=== PATIENT | female | born 1945 | race African-American/Black ===

== ENCOUNTER 2022-07-06 09:26 | Inpatient (IN) | payer MEDICARE ==
[2022-07-06] VITALS (7 sets, daily range): BP systolic 105–150; BP diastolic 31–82
[~2022-07-06] VITALS: Ht 160 cm; Wt 67.6 kg
[2022-07-06] MEDS ORDERED: METHYLPREDNISOLONE SOD SUCC 125 MG/2 ML VIAL IV STA (09:36)
[2022-07-06] MEDS ORDERED: IPRATROPIUM BROMIDE (0.02%) 0.5MG/2.5ML NEB HHN STA (09:36)
[2022-07-06] MEDS ORDERED: ALBUTEROL (0.083%) 2.5MG/3ML NEB HHN STA (09:36)
[2022-07-06] MEDS ORDERED: MAGNESIUM 2 G PREMIX 50 ML IV STA (09:36)
[2022-07-06 09:55] LABS: HEMATOCRIT. 31.5 % (36.0-48.0); HEMOGLOBIN. 10.5 g/dL (12.0-16.0); MEAN CORPUSCULAR HEMOGLOBIN 31.2 pg (28.0-32.0); MEAN CORPUSCULAR VOLUME 93.8 fL (81.0-99.0); MEAN PLATELET VOLUME 8.9 fl (7.4-10.4); PLATELET 439 x1000/uL (130-400); RED BLOOD CELL COUNT 3.36 mill/uL (4.2-5.4); RED CELL DISTRIBUTION WIDTH 17.1 % (11.6-14.6)
[2022-07-06 10:01] LABS: CHLORIDE 94 mEq/L (98-107)
[2022-07-06 10:35] LABS: BG BASE EXCESS -3.1 mmol/L (-2.0-2.0); BG CARBOXYHEMOGLOBIN 0.3 % (0.5-1.5); BG DEOXYHEMOGLOBIN 2.9 % (0.0-5.0); BG FRACTION INSPIRED OXYGEN 50; BG HCO3 ACT 22.2 mmol/L (22.0-26.0); BG METHEMOGLOBIN 0.3 % (0.0-1.5); BG OXYGEN SATURATION 97.1 % (92.0-98.5); BG OXYHEMOGLOBIN 96.5 % (94.0-97.0); BG PCO2 41.1 mmHg (35.0-45.0); BG PH 7.351 (7.350-7.450); BG PO2 102.6 mmHg (75.0-100.0); BG SAMPLE SITE RIGHT BRACHIAL; BG TOTAL HEMOGLOBIN 10.8 g/dL (12.0-18.0); BG VENT MODE MASK - HHN
[2022-07-06 10:36] LABS: PLATELET ESTIMATE SLIGHTLY INCREASED
[2022-07-06] MEDS ORDERED: CEFTRIAXONE 1 G PREMIX 50 ML IV SCH (16:15)
[2022-07-06] MEDS ORDERED: ONDANSETRON HCL 4MG/2ML INJ IV PRN (16:15)
[2022-07-06] MEDS ORDERED: ACETAMINOPHEN 325MG TABLET PO PRN (16:15)
[2022-07-06] MEDS: SODIUM CHLORIDE 0.9% 1,000 ML IV SCH (17:00)
[2022-07-06] MEDS: CEFTRIAXONE 1,000 MG in DEXTROSE 5% WATER 50 ML IV SCH (17:30)
[2022-07-06 18:13] LABS: D-DIMER 3.68 mg/L FEU (<0.50); PROTHROMBIN TIME 10.5 sec (9.6-11.0)
[2022-07-06] MEDS: AZITHROMYCIN 500 MG in DEXT 5% WATER 250 ML IV SCH (18:55)
[2022-07-06] MEDS: IPRATROPIUM/ALBUTEROL 0.5-3(2.5)MG/3ML NEB HHN SCH (21:10)
[2022-07-07] VITALS (30 sets, daily range): BP systolic 91–149; BP diastolic 44–78
[2022-07-07] MEDS: IPRATROPIUM/ALBUTEROL 0.5-3(2.5)MG/3ML NEB HHN SCH ×4 (01:33→20:14)
[2022-07-07 08:21] LABS: BG BASE EXCESS -6.3 mmol/L (-2.0-2.0); BG CARBOXYHEMOGLOBIN 0.3 % (0.5-1.5); BG DEOXYHEMOGLOBIN 6.2 % (0.0-5.0); BG HCO3 ACT 22.6 mmol/L (22.0-26.0); BG OXYGEN SATURATION 93.8 % (92.0-98.5); BG OXYHEMOGLOBIN 93.5 % (94.0-97.0); BG PCO2 62.7 mmHg (35.0-45.0); BG PH 7.175 (7.350-7.450); BG PO2 75.7 mmHg (75.0-100.0); BG SAMPLE SITE RIGHT RADIAL; BG TOTAL HEMOGLOBIN 10.8 g/dL (12.0-18.0); BG VENT MODE MASK - NRB
[2022-07-07] MEDS ORDERED: SODIUM BICARBONATE 4% (2.4MEQ) 5ML VIAL IV ONE (09:40)
[2022-07-07 12:32] LABS: BG BASE EXCESS -3.8 mmol/L (-2.0-2.0); BG CARBOXYHEMOGLOBIN 0.3 % (0.5-1.5); BG DEOXYHEMOGLOBIN 0.6 % (0.0-5.0); BG HCO3 ACT 22.5 mmol/L (22.0-26.0); BG METHEMOGLOBIN 0.2 % (0.0-1.5); BG OXYGEN SATURATION 99.4 % (92.0-98.5); BG OXYHEMOGLOBIN 98.9 % (94.0-97.0); BG PCO2 46.7 mmHg (35.0-45.0); BG PH 7.301 (7.350-7.450); BG SAMPLE SITE RIGHT BRACHIAL; BG VENT MODE MASK - BIPAP
[2022-07-07] MEDS: LETROZOLE 2.5MG TABLET PO SCH (15:12)
[2022-07-07] MEDS: [UNRECOGNIZED DRUG - OTHER] XX SCH (15:12)
[2022-07-07] MEDS: SODIUM CHLORIDE 0.9% 1,000 ML IV SCH (15:13)
[2022-07-07] MEDS: CEFTRIAXONE 1,000 MG in DEXTROSE 5% WATER 50 ML IV SCH (16:56)
[2022-07-07] MEDS ORDERED: CEFTRIAXONE 1,000 MG in DEXTROSE 5% WATER 50 ML IV SCH (17:00)
[2022-07-07] MEDS: AZITHROMYCIN 500 MG in DEXT 5% WATER 250 ML IV SCH (18:14)
[2022-07-07] MEDS ORDERED: IPRATROPIUM/ALBUTEROL 0.5-3(2.5)MG/3ML NEB HHN SCH (18:30)
[2022-07-07 18:35] LABS: HEMATOCRIT. 31.2 % (36.0-48.0); HEMOGLOBIN. 9.9 g/dL (12.0-16.0); MEAN CORPUSCULAR HEMOGLOBIN 30.3 pg (28.0-32.0); MEAN CORPUSCULAR VOLUME 95.5 fL (81.0-99.0); MEAN PLATELET VOLUME 8.8 fl (7.4-10.4); PLATELET 370 x1000/uL (130-400); RED BLOOD CELL COUNT 3.27 mill/uL (4.2-5.4); RED CELL DISTRIBUTION WIDTH 17.5 % (11.6-14.6)
[2022-07-07] MEDS ORDERED: MENTHOL/LANOLIN/CALAMINE/ZN OX OINT 71GM TOP PRN (19:00)
[2022-07-07 19:53] LABS: PLATELET ESTIMATE NORMAL
[2022-07-08] VITALS (24 sets, daily range): BP systolic 86–136; BP diastolic 27–68
[2022-07-08 00:38] LABS: BG BASE EXCESS -4.3 mmol/L (-2.0-2.0); BG CARBOXYHEMOGLOBIN 0.2 % (0.5-1.5); BG DEOXYHEMOGLOBIN 10.6 % (0.0-5.0); BG FRACTION INSPIRED OXYGEN 100; BG HCO3 ACT 29.6 mmol/L (22.0-26.0); BG METHEMOGLOBIN 0.4 % (0.0-1.5); BG OXYGEN SATURATION 89.3 % (92.0-98.5); BG OXYHEMOGLOBIN 88.8 % (94.0-97.0); BG PCO2 127.1 mmHg (35.0-45.0); BG PH 6.985 (7.350-7.450); BG PO2 71.3 mmHg (75.0-100.0); BG TOTAL HEMOGLOBIN 11.2 g/dL (12.0-18.0); BG VENT MODE MASK - BIPAP
[2022-07-08] MEDS: IPRATROPIUM/ALBUTEROL 0.5-3(2.5)MG/3ML NEB HHN SCH ×4 (02:05→20:30)
[2022-07-08 02:39] LABS: BG BASE EXCESS -3.4 mmol/L (-2.0-2.0); BG CARBOXYHEMOGLOBIN 0.3 % (0.5-1.5); BG DEOXYHEMOGLOBIN 0.9 % (0.0-5.0); BG FRACTION INSPIRED OXYGEN 100; BG HCO3 ACT 23.1 mmol/L (22.0-26.0); BG METHEMOGLOBIN 0.1 % (0.0-1.5); BG OXYGEN SATURATION 99.1 % (92.0-98.5); BG OXYHEMOGLOBIN 98.7 % (94.0-97.0); BG PCO2 48.1 mmHg (35.0-45.0); BG PH 7.299 (7.350-7.450); BG PO2 151.9 mmHg (75.0-100.0); BG SAMPLE SITE RIGHT BRACHIAL; BG TOTAL HEMOGLOBIN 10.8 g/dL (12.0-18.0); BG VENT MODE VENT - AC
[2022-07-08 06:05] LABS: HEMATOCRIT. 28.3 % (36.0-48.0); HEMOGLOBIN. 9.5 g/dL (12.0-16.0); MEAN CORPUSCULAR HEMOGLOBIN 31.7 pg (28.0-32.0); MEAN CORPUSCULAR VOLUME 94.8 fL (81.0-99.0); MEAN PLATELET VOLUME 9.1 fl (7.4-10.4); PLATELET 345 x1000/uL (130-400); RED BLOOD CELL COUNT 2.99 mill/uL (4.2-5.4); RED CELL DISTRIBUTION WIDTH 17.1 % (11.6-14.6)
[2022-07-08 07:57] LABS: PLATELET ESTIMATE NORMAL
[2022-07-08 08:55] LABS: BG BASE EXCESS -2.9 mmol/L (-2.0-2.0); BG CARBOXYHEMOGLOBIN 0.3 % (0.5-1.5); BG DEOXYHEMOGLOBIN 0.9 % (0.0-5.0); BG FRACTION INSPIRED OXYGEN 100; BG HCO3 ACT 21.9 mmol/L (22.0-26.0); BG METHEMOGLOBIN 0.4 % (0.0-1.5); BG OXYGEN SATURATION 99.1 % (92.0-98.5); BG OXYHEMOGLOBIN 98.4 % (94.0-97.0); BG PCO2 38.1 mmHg (35.0-45.0); BG PH 7.377 (7.350-7.450); BG SAMPLE SITE RIGHT RADIAL; BG TOTAL HEMOGLOBIN 9.8 g/dL (12.0-18.0); BG VENT MODE VENT - AC
[2022-07-08] MEDS: SODIUM CHLORIDE 0.9% 1,000 ML IV SCH (09:00)
[2022-07-08] MEDS: LETROZOLE 2.5MG TABLET PO SCH (09:00)
[2022-07-08] MEDS: FENTANYL 2500MCG/250ML PMX 250 ML IV SCH (13:52)
[2022-07-08] MEDS: [UNRECOGNIZED DRUG - OTHER] XX SCH (14:00)
[2022-07-08 18:16] LABS: CLARITY URINE CLOUDY (CLEAR); COLOR URINE YELLOW (YELLOW); KETONES URINE TRACE (NEGATIVE); LEUKOCYTE ESTERASE URINE 2+ (NEGATIVE); NITRITE URINE NEGATIVE (NEGATIVE); OCCULT BLOOD URINE 2+ (NEGATIVE); PROTEIN URINE 2+ (NEGATIVE); SPECIFIC GRAVITY URINE 1.015 (1.005-1.030); UROBILINOGEN URINE 0.2 E.U./dL (0.2-1.0)
[2022-07-08] MEDS: AZITHROMYCIN 500 MG in DEXT 5% WATER 250 ML IV SCH (18:54)
[2022-07-08] MEDS: CEFEPIME 1,000 MG in DEXTROSE 5% WATER 50 ML IV SCH (20:00)
[2022-07-09] VITALS (27 sets, daily range): BP systolic 73–135; BP diastolic 36–78
[2022-07-09] MEDS: IPRATROPIUM/ALBUTEROL 0.5-3(2.5)MG/3ML NEB HHN SCH ×4 (02:01→20:51)
[2022-07-09] MEDS: SODIUM CHLORIDE 0.9% 1,000 ML IV SCH (05:21)
[2022-07-09 05:45] LABS: HEMATOCRIT. 27.9 % (36.0-48.0); HEMOGLOBIN. 9.3 g/dL (12.0-16.0); MEAN CORPUSCULAR HEMOGLOBIN 31.1 pg (28.0-32.0); MEAN CORPUSCULAR VOLUME 92.9 fL (81.0-99.0); MEAN PLATELET VOLUME 9.4 fl (7.4-10.4); PLATELET 191 x1000/uL (130-400); RED BLOOD CELL COUNT 3.01 mill/uL (4.2-5.4); RED CELL DISTRIBUTION WIDTH 17.3 % (11.6-14.6)
[2022-07-09 07:34] LABS: BG BASE EXCESS -3.5 mmol/L (-2.0-2.0); BG CARBOXYHEMOGLOBIN 0.3 % (0.5-1.5); BG DEOXYHEMOGLOBIN 7.5 % (0.0-5.0); BG HCO3 ACT 22.8 mmol/L (22.0-26.0); BG METHEMOGLOBIN 0.2 % (0.0-1.5); BG OXYGEN SATURATION 92.5 % (92.0-98.5); BG PCO2 46.6 mmHg (35.0-45.0); BG PH 7.307 (7.350-7.450); BG PO2 70.6 mmHg (75.0-100.0); BG SAMPLE SITE RIGHT RADIAL; BG TOTAL HEMOGLOBIN 10.4 g/dL (12.0-18.0); BG VENT MODE VENT - AC
[2022-07-09] MEDS: LETROZOLE 2.5MG TABLET PO SCH (09:31)
[2022-07-09] MEDS: THIAMINE HCL 100MG TABLET NG SCH (09:32)
[2022-07-09] MEDS: MULTIVITAMINS,THER W-MINERALS TABLET PO SCH (09:32)
[2022-07-09 10:25] LABS: PLATELET ESTIMATE NORMAL
[2022-07-09] MEDS ORDERED: MIDODRINE HCL 5MG TABLET PO NR (12:30)
[2022-07-09] MEDS: [UNRECOGNIZED DRUG - OTHER] XX SCH (14:11)
[2022-07-09] MEDS: ACETYLCYSTEINE 100MG/ML 10% VIAL 4ML INH SCH ×2 (14:16→20:51)
[2022-07-09] MEDS: NOREPINEPHRINE 8 MG in DEXT 5% WATER 242 ML IV PRN (15:00)
[2022-07-09] MEDS: AZITHROMYCIN 500 MG in DEXT 5% WATER 250 ML IV SCH (18:04)
[2022-07-09] MEDS: FENTANYL 2500MCG/250ML PMX 250 ML IV SCH (20:02)
[2022-07-09] MEDS: CEFEPIME 1,000 MG in DEXTROSE 5% WATER 50 ML IV SCH (20:31)
[2022-07-10] VITALS (74 sets, daily range): BP systolic 78–130; BP diastolic 38–76
[2022-07-10] MEDS: NOREPINEPHRINE 8 MG in DEXT 5% WATER 242 ML IV PRN ×2 (00:54→23:32)
[2022-07-10] MEDS: SODIUM CHLORIDE 0.9% 1,000 ML IV SCH ×3 (01:00→23:59)
[2022-07-10] MEDS: IPRATROPIUM/ALBUTEROL 0.5-3(2.5)MG/3ML NEB HHN SCH ×4 (01:28→20:39)
[2022-07-10 07:50] LABS: BG BASE EXCESS -6.6 mmol/L (-2.0-2.0); BG CARBOXYHEMOGLOBIN 0.2 % (0.5-1.5); BG DEOXYHEMOGLOBIN 9.1 % (0.0-5.0); BG HCO3 ACT 20.2 mmol/L (22.0-26.0); BG METHEMOGLOBIN 0.4 % (0.0-1.5); BG OXYGEN SATURATION 90.8 % (92.0-98.5); BG OXYHEMOGLOBIN 90.3 % (94.0-97.0); BG PCO2 45.8 mmHg (35.0-45.0); BG PH 7.262 (7.350-7.450); BG PO2 64.2 mmHg (75.0-100.0); BG SAMPLE SITE RIGHT RADIAL; BG TOTAL HEMOGLOBIN 10.3 g/dL (12.0-18.0); BG VENT MODE VENT - AC
[2022-07-10] MEDS: ACETYLCYSTEINE 100MG/ML 10% VIAL 4ML INH SCH ×3 (08:21→20:39)
[2022-07-10] MEDS: PANTOPRAZOLE SODIUM 40 MG/VIAL IV SCH (08:57)
[2022-07-10] MEDS: THIAMINE HCL 100MG TABLET NG SCH (08:57)
[2022-07-10] MEDS: MULTIVITAMINS,THER W-MINERALS TABLET PO SCH (08:57)
[2022-07-10] MEDS: LETROZOLE 2.5MG TABLET PO SCH (08:58)
[2022-07-10] MEDS ORDERED: ALBUMIN HUMAN 25GM/100ML (25%) IV SCH (09:00)
[2022-07-10 10:52] LABS: MEAN CORPUSCULAR HEMOGLOBIN 31.2 pg (28.0-32.0); MEAN CORPUSCULAR VOLUME 93.2 fL (81.0-99.0); PLATELET 96 x1000/uL (130-400); RED BLOOD CELL COUNT 2.89 mill/uL (4.2-5.4); RED CELL DISTRIBUTION WIDTH 17.3 % (11.6-14.6)
[2022-07-10 11:18] LABS: NUCLEATED RED BLOOD CELLS 1 /100 WBC
[2022-07-10 11:19] LABS: PLATELET ESTIMATE SLIGHTLY DECREASED
[2022-07-10] MEDS: [UNRECOGNIZED DRUG - OTHER] XX SCH (13:46)
[2022-07-10] MEDS: FENTANYL 2500MCG/250ML PMX 250 ML IV SCH (14:11)
[2022-07-10] MEDS: MEROPENEM 1,000 MG in SODIUM CHLORIDE 0.9% 100 ML IV SCH (14:53)
[2022-07-10] MEDS: AZITHROMYCIN 500 MG in DEXT 5% WATER 250 ML IV SCH (17:40)
[2022-07-11] VITALS (87 sets, daily range): BP systolic 80–137; BP diastolic 38–75
[2022-07-11] MEDS: IPRATROPIUM/ALBUTEROL 0.5-3(2.5)MG/3ML NEB HHN SCH ×4 (01:49→19:47)
[2022-07-11] MEDS: MEROPENEM 1,000 MG in SODIUM CHLORIDE 0.9% 100 ML IV SCH ×2 (02:12→15:26)
[2022-07-11] MEDS: FENTANYL 2500MCG/250ML PMX 250 ML IV SCH ×2 (03:42→17:25)
[2022-07-11] MEDS: NOREPINEPHRINE 32 MG in DEXT 5% WATER 218 ML IV PRN (06:30)
[2022-07-11 08:38] LABS: BG BASE EXCESS -11.5 mmol/L (-2.0-2.0); BG CARBOXYHEMOGLOBIN 0.3 % (0.5-1.5); BG DEOXYHEMOGLOBIN 14.6 % (0.0-5.0); BG FRACTION INSPIRED OXYGEN 100; BG HCO3 ACT 16.2 mmol/L (22.0-26.0); BG METHEMOGLOBIN 0.9 % (0.0-1.5); BG OXYGEN SATURATION 85.2 % (92.0-98.5); BG OXYHEMOGLOBIN 84.2 % (94.0-97.0); BG PCO2 44.6 mmHg (35.0-45.0); BG PH 7.179 (7.350-7.450); BG PO2 55.6 mmHg (75.0-100.0); BG SAMPLE SITE RIGHT RADIAL; BG VENT MODE VENT - AC
[2022-07-11] MEDS: ACETYLCYSTEINE 100MG/ML 10% VIAL 4ML INH SCH ×2 (08:45→14:32)
[2022-07-11] MEDS: MULTIVITAMINS,THER W-MINERALS TABLET PO SCH (08:56)
[2022-07-11] MEDS: LETROZOLE 2.5MG TABLET PO SCH (08:56)
[2022-07-11] MEDS: PANTOPRAZOLE SODIUM 40 MG/VIAL IV SCH (08:56)
[2022-07-11] MEDS: THIAMINE HCL 100MG TABLET NG SCH (08:56)
[2022-07-11] MEDS ORDERED: SODIUM BICARBONATE 8.4% 1 MEQ/ML 50ML SYR IV NR (10:00)
[2022-07-11 10:31] LABS: CHLORIDE 102 mEq/L (98-107)
[2022-07-11] MEDS: SODIUM CHLORIDE 0.9% 1,000 ML IV SCH (10:39)
[2022-07-11 10:40] LABS: HEMATOCRIT. 25.7 % (36.0-48.0); HEMOGLOBIN. 8.7 g/dL (12.0-16.0); MEAN CORPUSCULAR HEMOGLOBIN 31.6 pg (28.0-32.0); MEAN CORPUSCULAR VOLUME 93.7 fL (81.0-99.0); RED BLOOD CELL COUNT 2.74 mill/uL (4.2-5.4); RED CELL DISTRIBUTION WIDTH 17.6 % (11.6-14.6)
[2022-07-11 11:13] LABS: PLATELET ESTIMATE DECREASED
[2022-07-11 11:14] LABS: MEAN PLATELET VOLUME 9.4 fl (7.4-10.4); PLATELET 55 x1000/uL (130-400)
[2022-07-11 12:07] LABS: PHOSPHORUS 4.1 mg/dL (2.5-4.9)
[2022-07-11] MEDS: [UNRECOGNIZED DRUG - OTHER] XX SCH (14:31)
[2022-07-11] MEDS: METOCLOPRAMIDE HCL 10MG/2ML VIAL IV SCH (19:26)
[2022-07-12] VITALS (75 sets, daily range): BP systolic 88–182; BP diastolic 38–95
[2022-07-12] MEDS: SODIUM CHLORIDE 0.9% 1,000 ML IV SCH (01:29)
[2022-07-12] MEDS: ACETYLCYSTEINE 100MG/ML 10% VIAL 4ML INH SCH ×2 (02:10→08:00)
[2022-07-12] MEDS: IPRATROPIUM/ALBUTEROL 0.5-3(2.5)MG/3ML NEB HHN SCH ×4 (02:10→19:45)
[2022-07-12] MEDS: MEROPENEM 1,000 MG in SODIUM CHLORIDE 0.9% 100 ML IV SCH ×2 (02:24→14:52)
[2022-07-12 04:35] LABS: HEMOGLOBIN. 9.2 g/dL (12.0-16.0); MEAN CORPUSCULAR HEMOGLOBIN 32.8 pg (28.0-32.0); MEAN CORPUSCULAR VOLUME 96.3 fL (81.0-99.0); MEAN PLATELET VOLUME 9.2 fl (7.4-10.4); RED BLOOD CELL COUNT 2.81 mill/uL (4.2-5.4); RED CELL DISTRIBUTION WIDTH 18.3 % (11.6-14.6)
[2022-07-12 05:00] LABS: CHLORIDE 101 mEq/L (98-107)
[2022-07-12 05:04] LABS: PLATELET 40 x1000/uL (130-400)
[2022-07-12 05:13] LABS: PHOSPHORUS 4.8 mg/dL (2.5-4.9)
[2022-07-12] MEDS: METOCLOPRAMIDE HCL 10MG/2ML VIAL IV SCH ×5 (05:42→23:32)
[2022-07-12] MEDS: NOREPINEPHRINE 32 MG in DEXT 5% WATER 218 ML IV PRN (05:43)
[2022-07-12] MEDS: FENTANYL 2500MCG/250ML PMX 250 ML IV SCH ×2 (05:43→17:33)
[2022-07-12 07:24] LABS: PLATELET ESTIMATE MARKEDLY DECREASED
[2022-07-12 07:30] LABS: BG BASE EXCESS -8.3 mmol/L (-2.0-2.0); BG CARBOXYHEMOGLOBIN 0.2 % (0.5-1.5); BG DEOXYHEMOGLOBIN 9.1 % (0.0-5.0); BG HCO3 ACT 19.6 mmol/L (22.0-26.0); BG METHEMOGLOBIN 0.4 % (0.0-1.5); BG OXYGEN SATURATION 90.8 % (92.0-98.5); BG OXYHEMOGLOBIN 90.3 % (94.0-97.0); BG PCO2 52.4 mmHg (35.0-45.0); BG PH 7.191 (7.350-7.450); BG PO2 68.6 mmHg (75.0-100.0); BG SAMPLE SITE RIGHT RADIAL; BG TOTAL HEMOGLOBIN 9.3 g/dL (12.0-18.0); BG VENT MODE VENT - AC
[2022-07-12] MEDS: MULTIVITAMINS,THER W-MINERALS TABLET PO SCH (09:25)
[2022-07-12] MEDS: PANTOPRAZOLE SODIUM 40 MG/VIAL IV SCH (09:25)
[2022-07-12] MEDS: THIAMINE HCL 100MG TABLET NG SCH (09:25)
[2022-07-12] MEDS ORDERED: SODIUM BICARBONATE 8.4% 1 MEQ/ML 50ML SYR IV SCH (09:30)
[2022-07-12] MEDS ORDERED: SODIUM POLYSTYRENE SULFONATE 15 G/60 ML BOT PO SCH (09:30)
[2022-07-12] MEDS: SODIUM BICARBONATE 150 MEQ in DEXTROSE 5% WATER 1,000 ML IV SCH (11:09)
[2022-07-12] MEDS: LETROZOLE 2.5MG TABLET PO SCH (12:30)
[2022-07-12] MEDS: [UNRECOGNIZED DRUG - OTHER] XX SCH (14:51)
[2022-07-13] VITALS (80 sets, daily range): BP systolic 79–145; BP diastolic 24–64
[2022-07-13] MEDS: NOREPINEPHRINE 32 MG in DEXT 5% WATER 218 ML IV PRN ×2 (01:41→22:41)
[2022-07-13] MEDS: ACETYLCYSTEINE 100MG/ML 10% VIAL 4ML INH SCH ×3 (01:48→14:40)
[2022-07-13] MEDS: IPRATROPIUM/ALBUTEROL 0.5-3(2.5)MG/3ML NEB HHN SCH ×4 (01:49→20:58)
[2022-07-13] MEDS: MEROPENEM 1,000 MG in SODIUM CHLORIDE 0.9% 100 ML IV SCH ×2 (04:35→16:05)
[2022-07-13] MEDS: METOCLOPRAMIDE HCL 10MG/2ML VIAL IV SCH ×4 (05:13→23:31)
[2022-07-13 05:42] LABS: HEMATOCRIT. 23.8 % (36.0-48.0); HEMOGLOBIN. 8.2 g/dL (12.0-16.0); MEAN CORPUSCULAR VOLUME 92.3 fL (81.0-99.0); MEAN PLATELET VOLUME 10.1 fl (7.4-10.4); RED BLOOD CELL COUNT 2.58 mill/uL (4.2-5.4)
[2022-07-13] MEDS: FENTANYL 2500MCG/250ML PMX 250 ML IV SCH (06:15)
[2022-07-13 06:46] LABS: CHLORIDE 101 mEq/L (98-107)
[2022-07-13 07:39] LABS: PLATELET ESTIMATE MARKEDLY DECREASED
[2022-07-13 07:40] LABS: PLATELET 31 x1000/uL (130-400)
[2022-07-13] MEDS ORDERED: FUROSEMIDE 100MG/10ML VIAL IVP NR (08:15)
[2022-07-13] MEDS ORDERED: SODIUM POLYSTYRENE SULFONATE 15 G/60 ML BOT PO NR (08:15)
[2022-07-13 08:34] LABS: BG CARBOXYHEMOGLOBIN 0.4 % (0.5-1.5); BG DEOXYHEMOGLOBIN 19.5 % (0.0-5.0); BG FRACTION INSPIRED OXYGEN 100; BG HCO3 ACT 24.1 mmol/L (22.0-26.0); BG METHEMOGLOBIN 0.3 % (0.0-1.5); BG OXYGEN SATURATION 80.4 % (92.0-98.5); BG OXYHEMOGLOBIN 79.8 % (94.0-97.0); BG PCO2 54.7 mmHg (35.0-45.0); BG PH 7.262 (7.350-7.450); BG PO2 47.3 mmHg (75.0-100.0); BG SAMPLE SITE RIGHT BRACHIAL; BG TOTAL HEMOGLOBIN 8.6 g/dL (12.0-18.0); BG VENT MODE VENT - AC
[2022-07-13] MEDS: PANTOPRAZOLE SODIUM 40 MG/VIAL IV SCH (08:57)
[2022-07-13] MEDS: THIAMINE HCL 100MG TABLET NG SCH (08:58)
[2022-07-13] MEDS: MULTIVITAMINS,THER W-MINERALS TABLET PO SCH (08:58)
[2022-07-13] MEDS: LETROZOLE 2.5MG TABLET PO SCH (09:22)
[2022-07-13] MEDS: SODIUM BICARBONATE 150 MEQ in DEXTROSE 5% WATER 1,000 ML IV SCH (11:33)
[2022-07-13] MEDS: [UNRECOGNIZED DRUG - OTHER] XX SCH (16:05)
[2022-07-13] MEDS ORDERED: FENTANYL 2500MCG/250ML PMX 250 ML IV PRN (20:09)
[2022-07-14] VITALS (78 sets, daily range): BP systolic 78–139; BP diastolic 37–59
[2022-07-14] MEDS: IPRATROPIUM/ALBUTEROL 0.5-3(2.5)MG/3ML NEB HHN SCH ×4 (01:08→20:40)
[2022-07-14] MEDS: ACETYLCYSTEINE 100MG/ML 10% VIAL 4ML INH SCH ×3 (01:08→13:39)
[2022-07-14] MEDS: MEROPENEM 1,000 MG in SODIUM CHLORIDE 0.9% 100 ML IV SCH ×2 (02:54→15:31)
[2022-07-14] MEDS: METOCLOPRAMIDE HCL 10MG/2ML VIAL IV SCH ×4 (06:16→23:19)
[2022-07-14 06:56] LABS: CHLORIDE 98 mEq/L (98-107)
[2022-07-14] MEDS ORDERED: SODIUM POLYSTYRENE SULFONATE 15 G/60 ML BOT PO NR (08:15)
[2022-07-14] MEDS: PANTOPRAZOLE SODIUM 40 MG/VIAL IV SCH (09:53)
[2022-07-14] MEDS: MULTIVITAMINS,THER W-MINERALS TABLET PO SCH (09:53)
[2022-07-14] MEDS: LETROZOLE 2.5MG TABLET PO SCH (09:53)
[2022-07-14] MEDS: THIAMINE HCL 100MG TABLET NG SCH (09:53)
[2022-07-14] MEDS: NOREPINEPHRINE 32 MG in DEXT 5% WATER 218 ML IV PRN ×2 (09:54→19:52)
[2022-07-14] MEDS ORDERED: LACTULOSE 20G/30ML UDC PO PRN (11:15)
[2022-07-14] MEDS ORDERED: PHENYLEPHRINE 100 MG in DEXT 5% WATER 240 ML IV PRN (12:15)
[2022-07-14 13:11] LABS: CA 27.29 1302.2 U/mL (0.0-38.6)
[2022-07-14] MEDS: [UNRECOGNIZED DRUG - OTHER] XX SCH (13:41)
[2022-07-14 17:41] LABS: HEMATOCRIT. 23.4 % (36.0-48.0); HEMOGLOBIN. 7.8 g/dL (12.0-16.0); MEAN CORPUSCULAR HEMOGLOBIN 30.7 pg (28.0-32.0); MEAN CORPUSCULAR VOLUME 91.7 fL (81.0-99.0); MEAN PLATELET VOLUME 11.3 fl (7.4-10.4); RED BLOOD CELL COUNT 2.55 mill/uL (4.2-5.4); RED CELL DISTRIBUTION WIDTH 17.8 % (11.6-14.6)
[2022-07-14 18:01] LABS: PLATELET 17 x1000/uL (130-400)
[2022-07-14 18:42] LABS: PLATELET ESTIMATE MARKEDLY DECREASED
[2022-07-14] MEDS: SODIUM BICARBONATE 150 MEQ in DEXTROSE 5% WATER 1,000 ML IV SCH (22:08)
[2022-07-15] VITALS (15 sets, daily range): BP systolic 0–129; BP diastolic 0–54
[2022-07-15] MEDS: IPRATROPIUM/ALBUTEROL 0.5-3(2.5)MG/3ML NEB HHN SCH ×2 (01:20→08:37)
[2022-07-15] MEDS: MEROPENEM 1,000 MG in SODIUM CHLORIDE 0.9% 100 ML IV SCH (02:06)
[2022-07-15] MEDS: METOCLOPRAMIDE HCL 10MG/2ML VIAL IV SCH (06:10)
== END 2022-07-15 11:45 | DRG 870 ==
LOC: ER 09:26 → 3WST 12:41 → EDBEDREQ 12:45 → EDBEDREQTM 12:45 → 3WST 07-07 04:15 → 5EST 07-07 08:03 → MICUSO 07-11 11:30 → MICUNO 07-13 02:00
PROVIDERS: ADMIT Internal Medicine Pulmonary Disease; ATTEND Internal Medicine Pulmonary Disease
PROC: 5A09357 Assistance with Respiratory Ventilation, Less than 24 Consecutive Hours, Continuous Positive Airway Pressure (ICD-10-PCS; 2022-07-07)
PROC: 0W9B3ZZ Drainage of Left Pleural Cavity, Percutaneous Approach (ICD-10-PCS; 2022-07-07)
PROC: 5A1955Z Respiratory Ventilation, Greater than 96 Consecutive Hours (ICD-10-PCS; principal; 2022-07-08)
PROC: 0BH17EZ Insertion of Endotracheal Airway into Trachea, Via Natural or Artificial Opening (ICD-10-PCS; 2022-07-08)
PROC: 02HV33Z Insertion of Infusion Device into Superior Vena Cava, Percutaneous Approach (ICD-10-PCS; 2022-07-09)
PROC: 05HY33Z Insertion of Infusion Device into Upper Vein, Percutaneous Approach (ICD-10-PCS; 2022-07-13)
DX: A41.89 Other specified sepsis (principal); J96.01 Acute respiratory failure with hypoxia; N17.0 Acute kidney failure with tubular necrosis; J18.9 Pneumonia, unspecified organism; E43 Unspecified severe protein-calorie malnutrition; R65.21 Severe sepsis with septic shock; J96.02 Acute respiratory failure with hypercapnia; J44.1 Chronic obstructive pulmonary disease with (acute) exacerbation; E87.1 Hypo-osmolality and hyponatremia; J44.0 Chronic obstructive pulmonary disease with (acute) lower respiratory infection; J91.8 Pleural effusion in other conditions classified elsewhere; N39.0 Urinary tract infection, site not specified; E87.29 Other acidosis; J93.9 Pneumothorax, unspecified; Z99.11 Dependence on respirator [ventilator] status; Z66 Do not resuscitate; Z20.822 Contact with and (suspected) exposure to COVID-19; E88.09 Other disorders of plasma-protein metabolism, not elsewhere classified; C50.912 Malignant neoplasm of unspecified site of left female breast; I10 Essential (primary) hypertension; E87.8 Other disorders of electrolyte and fluid balance, not elsewhere classified; D64.9 Anemia, unspecified; Z82.49 Family history of ischemic heart disease and other diseases of the circulatory system; Z68.26 Body mass index [BMI] 26.0-26.9, adult
CPT/HCPCS: 31500; 32555; 36415; 36573; 36600; 71045; 71250; 74018; 74176; 78580; 80048; 80053; 81003; 82040; 82375; 82533; 82784; 82805; 82962; 83605; 83735; 83880; 84100; 84134; 84145; 84443; 84484; 85025; 85379; 86300; 86334; 87075; 87426; 87804; 93005; 94002; 94003; 94640; 94644; 94660; 94664; 99291; A6261; C1725; C1769; C9113; C9803; J0456; J0692; J0696; J1940; J2185; J2370; J2405; J2765; J2930; J3010; J3475; J3490; J7030; J7050; J7060; J7070; J7608; P9047; A4315